=== PATIENT | male | born 1965 | race Caucasian/White ===

== ENCOUNTER 2023-12-30 15:23 | Emergency (ER) | payer BC, SELFPAY ==
[2023-12-30 15:30] VITALS: BP 141/82
[2023-12-30 15:49] LABS: % Basophils 0.2 % (0-2); % Eosinophils 1.4 % (0-6); % Immature Granulocytes 0.5 % (0-0.5); % Lymphocytes 30.5 % (20.5-51.1); % Monocytes 6.7 % (1.7-9.3); % Neutrophils 60.7 % (42.2-75.2); Absolute Eosinophils 0.1 10^3/uL (0-0.7); Absolute Lymphocytes 2.6 10^3/uL (1.2-3.4); Absolute Monocytes 0.6 10^3/uL (0.1-0.6); Absolute Neutrophils 5.1 10^3/uL (1.4-6.5); Hematocrit 44.4 % (39.0-52.0); Hemoglobin 16.2 g/dL (13.0-18.0); Mean Corp Hgb Conc. 36.5 g/dL (33.0-37.0); Mean Corpuscular Hgb 30.6 pg (27.0-31.0); Mean Corpuscular Volume 83.9 fL (80.0-94.0); Nucleated Red Blood Cells % 0 % (-); Platelet Count 225 10^3/uL (130-400); Red Blood Cell Count 5.29 10^6/uL (4.70-6.10); Red Cell Dist. Width 12.3 % (11.5-14.5); White Blood Cell Count 8.4 10^3/uL (4.8-10.8)
[2023-12-30 16:07] LABS: ALT (SGPT) 38 U/L (0-50); AST (SGOT) 32 U/L (17-59); Albumin 4.4 g/dl (3.5-5.0); Alkaline Phosphatase 79 U/L (38-126); Blood Urea Nitrogen 19 mg/dl (9-20); Calcium 9.3 mg/dl (8.4-10.2); Carbon Dioxide 24 mmol/L (22-30); Chloride 106 mmol/L (98-107); Glucose 135 mg/dl (70-99); Potassium 4.3 mmol/L (3.5-5.1); Sodium 143 mmol/L (135-145); Total Bilirubin 0.5 mg/dl (0.2-1.3); Total Protein 7.1 g/dl (6.3-8.2); eGFR > 60.00
[2023-12-30 16:15] LABS: Troponin I < 0.012 ng/ml
[2023-12-30 17:17] VITALS: BP 136/75
[2023-12-30 18:00] VITALS: BP 127/82
[2023-12-30 18:07] VITALS: BMI 39.9
--- NOTE | 2023-12-30 18:13 | EDRN ---
Mary Frost PA in room w/pt at this time.
--- NOTE | 2023-12-30 18:26 | ED.GENMED ---
History of Present Illness
General
Chief Complaint: Chest Pain
Time Seen by Provider: 12/30/23 17:47
History of Present Illness
History of Present Illness:
58-year-old male presents to the emergency department for evaluation of central chest pain that began at approximately 2:30 PM tonight. He states the chest pain began while he was walking up and down stairs however has had this chest pain in the
past without similar exertional nature to it. He also notes that the pain was better when upright and worse when lying down. Admits to eating [employer] earlier in the day. Does have a history of acid reflux and takes pantoprazole. Currently
asymptomatic. Denies any shortness of breath. Notes that he had a coronary calcium CT done approximately 8 years ago and this was unremarkable. He has no history of hypertension, hyperlipidemia, or diabetes, non-smoker
Review of Systems
Review of Systems
Allergies reviewed?: Yes
Phy Exam
Physical Exam
Physical Exam:
GEN: Well appearing, NAD, WDWN
HEENT: Oral mucosa moist, no scleral icterus
Cardiac: Regular rate and rhythm, no murmurs
Lung: No respiratory distress, no tachypnea, lungs clear to auscultation bilaterally
MSK: No gross deformity or injuries
Skin: Good color, no pallor or jaundice, no rashes
Neuro: AO x3, moves all extremities freely
Psych: Calm, cooperative
Scores
Heart Score for Chest Pain Patients
STEMI patient?: No
History: Slightly or Non-Suspicious
ECG: Nonspecific Repolarization
Age: >45 - <65 years
Risk Factors: No Risk Factors
Troponin: </= Normal Limit
Heart Score for Chest Pain Patients: 2
Heart Score Risk: 2.5% MACE over next 6 weeks
Course
Orders/Labs/Results
Orders:
Orders
12/30/23 15:26
Electrocardiogram (*1) Urgent
Reason for Study: Chest Pain
EKG- Treatment ONCE
12/30/23 15:39
Complete Blood Count/With Diff Urgent
Comprehensive Metabolic Panel Urgent
Troponin I Urgent
12/30/23 18:26
Electrocardiogram (*1) Urgent
Reason for Study: Chest Pain
EKG- Treatment ONCE
12/30/23 18:31
Troponin I Urgent
Abnormal Lab Results
12/30/23
15:39
Glucose 135 H mg/dl
(70-99)
12/30/23 15:39
12/30/23 15:39
Vital Signs
Initial and Last Documented VS:
Initial Vital Signs
Temp Pulse Resp BP Pulse Ox
97.7 F 98 16 141/82 96
12/30/23 15:30 12/30/23 15:30 12/30/23 15:30 12/30/23 15:30 12/30/23 15:30
Last Documented Vital Signs
Temp Pulse Resp BP Pulse Ox
97.7 F 86 13 133/84 98
12/30/23 15:30 12/30/23 19:15 12/30/23 19:15 12/30/23 19:00 12/30/23 19:00
MDM/Problems Addressed
MDM/Problems Addressed:
Patient remained asymptomatic in the emergency department and had 2 negative troponins. EKG is not overly ischemic, he states to me that he has a history of 'nonspecific ST segment issues' and [place] [facility] [place] At this
time he is suitable for outpatient management
Comment
Comment:
EKG independently interpreted by me shows normal sinus rhythm at a rate of [address] depressions inferiorly, no ST elevations
*Critical Care Note
Total Time (30-74mins, 75-104mins- exclusive of procedures): Not Applicable
ED Attending Note
-
Portions of this chart may have been created with voice recognition software.� Occasional wrong word or��sound alike� substitutions may have occurred due to the inherent limitations of voice recognition software.
Discharge Plan
Departure
Patient Disposition: Home (Routine Discharge)
Date of Disposition: 12/30/23
Time of Disposition: 19:10
Patient with high blood pressure during this ER visit?: No
Discharge Problem:
Atypical chest pain
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
Referrals:
Andriy Taylor DO [Family Provider] -
Activity Restrictions/Additional Instructions:
Please follow up with your production engineer for a stress test
I suspect these symptoms today were due to GERD/acid reflux
Return if symptoms worsen
Interventions
Interventions:
*Risk Screen - Suicide Last Done: 12/30/23 15:30
*General Assessment Last Done: 12/30/23 18:08
*Neglect/Abuse Screening Last Done: 12/30/23 15:30
ED- Fall Risk Assessment Last Done: 12/30/23 18:09
*ED COVID-19 Vaccine History Last Done: 12/30/23 18:08
*Nursing Disposition Last Done: 12/30/23 19:31
ED- Cardiac Assessment Last Done: 12/30/23 18:33
Discharge Date and Time
Discharge Date/Time: 12/30/23 19:32
Print Language: HEBREW
--- NOTE | 2023-12-30 18:33 | EDRN ---
Repeat troponin drawn and sent.
[2023-12-30 19:00] VITALS: BP 133/84
[2023-12-30 19:03] LABS: Troponin I < 0.012 ng/ml
== END 2023-12-30 19:32 | disposition home or self-care (01) ==
LOC: EMR 15:23
PROVIDERS: Emergency Medicine; Physician Assistant; EMERGENCY PHYSICIAN Emergency Medicine; FAMILY PHYSICIAN Family Medicine
DX: R07.89 Other chest pain (principal)
CPT/HCPCS: 99284; 80053; 84484; 85025; 93005